=== PATIENT | male | born 1995 | race Caucasian/White ===

== ENCOUNTER 2017-10-25 13:15 | Emergency (ER) | payer BC, OTHER ==
[~2017-10-25] VITALS: Ht 188 cm; Wt 64.5 kg
[2017-10-25 13:41] VITALS: BP 130/90
[2017-10-25] MEDS ORDERED: ONDANSETRON ODT 8 MG PO ONE (15:30)
[2017-10-25] MEDS ORDERED: ONDANSETRON ODT 4 MG ONE (15:46)
== END 2017-10-25 17:07 | disposition home or self-care (01) ==
LOC: ED 16:45
DX: R10.84 Generalized abdominal pain (principal); R11.2 Nausea with vomiting, unspecified
CPT/HCPCS: 99283; Q0162